=== PATIENT | male | born 1960 | race Caucasian/White ===

== ENCOUNTER 2017-01-17 10:19 | Emergency (ER) | payer MEDICARE, BC ==
[2017-01-17] MEDS ORDERED: ATORVASTATIN CA80 MG PO (10:23)
[2017-01-17] MEDS ORDERED: LISINOPRIL2.5 MG PO (10:23)
[2017-01-17] MEDS ORDERED: AMLODIPINE BESYL5 MG PO (10:23)
[2017-01-17] MEDS ORDERED: LOPRESSOR 225 MG/TAB PO (10:23)
[2017-01-17] MEDS ORDERED: ASPIR-TRIN325 M1 PO (10:23)
[2017-01-17] MEDS ORDERED: CLOPIDOGREL75 M1 PO (10:23)
[2017-01-17] MEDS ORDERED: MELOXICAM7.5 MG PO (10:24)
[2017-01-17] MEDS ORDERED: LISINOPRIL10 MG PO (11:58)
[2017-01-17 12:30] VITALS: BP 149/100
== END 2017-01-17 12:01 | disposition home or self-care (01) ==
LOC: ED 10:19
DX: R07.89 Other chest pain (principal); Z98.890 Other specified postprocedural states; Z95.5 Presence of coronary angioplasty implant and graft; I25.10 Atherosclerotic heart disease of native coronary artery without angina pectoris; I11.9 Hypertensive heart disease without heart failure
CPT/HCPCS: J1885

== ENCOUNTER 2018-08-18 12:32 | Emergency (ER) | payer MEDICARE, BC ==
[~2018-08-18] VITALS: Ht 188 cm; Wt 96.4 kg
[~2018-08-18 12:32] MED LIST: AMLODIPINE BESYL5 MG PO; ASPIR-TRIN325 M1 PO; ATORVASTATIN CA80 MG PO; CLOPIDOGREL75 M1 PO; LISINOPRIL10 MG PO; LISINOPRIL2.5 MG PO; LOPRESSOR 225 MG/TAB PO; MELOXICAM7.5 MG PO
[2018-08-18] MEDS ORDERED: NITROSTAT0.4 M1 SL (12:58)
[2018-08-18] MEDS ORDERED: ASPIR LOW81 MG PO (12:58)
[2018-08-18 13:10] LABS: EOS % 0.3 % (0.0-4.0); HEMATOCRIT 44.8 % (42.0-52.0); HEMOGLOBIN 15.7 g/dL (13.5-18.0); LYMPH# 1.5 (1.50-4.00); MEAN CELL VOLUME 89 fl (78-100); MEAN CORPUSCULAR HEMOGLOBIN 31 pg (27-31); MEAN CORPUSCULAR HGB CONC 35 g/dL (33-37); MEAN PLATELET VOLUME 9.7 fl (7.4-10.4); NEU # 8.1 (1.40-6.50); PLATELET COUNT 320 K/mm3 (130-400); RED BLOOD COUNT 5.01 M/mm3 (4.20-5.60); RED CELL DISTRIBUTION WIDTH 13.1 % (11.5-14.5); WHITE BLOOD COUNT 10.7 K/mm3 (4.8-10.8)
[2018-08-18 13:19] LABS: ALBUMIN 4.3 g/dL (3.5-5.0); CALCIUM 9.6 mg/dL (8.4-10.2); TOTAL BILIRUBIN 1.3 mg/dL (0.2-1.3); TOTAL PROTEIN 7.2 g/dL (6.3-8.2)
[2018-08-18 14:01] LABS: D-DIMER 0.22 mg/L FEU (0.15-0.50)
[2018-08-18 16:20] VITALS: BP 113/71
== END 2018-08-18 16:20 | disposition home or self-care (01) ==
LOC: ED 12:32
PROVIDERS: Family Medicine
DX: R07.89 Other chest pain (principal); K21.9 Gastro-esophageal reflux disease without esophagitis; E86.9 Volume depletion, unspecified; I25.10 Atherosclerotic heart disease of native coronary artery without angina pectoris; Z95.5 Presence of coronary angioplasty implant and graft; I10 Essential (primary) hypertension; E78.5 Hyperlipidemia, unspecified; Z79.899 Other long term (current) drug therapy; Z79.82 Long term (current) use of aspirin
CPT/HCPCS: J7030